=== PATIENT | male | born 1955 | race Caucasian/White ===

== ENCOUNTER 2019-05-25 19:18 | Observation (INO) ==
[2019-05-25 20:08] LABS: Basophils % 0.2 %; Eosinophils # 0.2 K/mcL (0.0-0.6); Eosinophils % 0.9 %; Hemoglobin 12.1 g/dL (12.9-16.9); Immature Granulocytes % 0.5 % (0-4); Lymphocytes # 1.8 K/mcL (0.6-4.6); Lymphocytes % 9.6 %; Mean Corpuscular HGB Conc 32.7 g/dL (31.6-35.5); Mean Corpuscular Hemoglobin 28.1 pg (28.0-33.3); Mean Corpuscular Volume 85.8 fL (83.0-100.0); Mean Platelet Volume 10.1 fL (9.4-12.4); Monocytes # 1.1 K/mcL (0.0-1.3); Monocytes % 5.7 %; Neutrophils # 15.5 K/mcL (1.6-8.9); Platelet Count 313 K/mcL (140-400); Red Blood Count 4.31 M/mcL (4.19-5.50); Segmented Neutrophils % 83.1 %; White Blood Count 18.7 K/mcL (4.3-11.1)
[2019-05-25 20:14] LABS: INR 1.3; Prothrombin Time 15.2 Seconds (9.4-12.1)
[2019-05-25 20:17] LABS: Activated Partial Thrombo Time 31.9 Seconds (26.0-36.0)
[2019-05-25 20:30] LABS: Alanine Aminotransferase 14 Units/L (7-52); Albumin 4.2 g/dL (3.5-5.7); Albumin/Globulin Ratio 1.4 (1.1-2.2); Alkaline Phosphatase 66 Units/L (34-104); Aspartate Amino Transferase 17 Units/L (13-39); BUN/Creatinine Ratio 19 (6-26); Bilirubin,Total 0.2 mg/dL (0.3-1.0); Blood Urea Nitrogen 25 mg/dL (8-23); Calcium 9.2 mg/dL (8.6-10.3); Carbon Dioxide 22 mEq/L (23-29); Chloride 103 mEq/L (98-107); Globulin 2.9 g/dL (2.4-3.5); Glucose 118 mg/dL (70-105); Osmolality,Calculated 287 (280-300); Sodium 136 mEq/L (136-145); Total Protein 7.1 g/dL (6.4-8.9); Troponin I < 0.03 ng/mL (< 0.04); eGFR For African Americans > 60 (> 60); eGFR For Non-African Americans 54 (> 60)
[2019-05-25 21:28] LABS: Bilirubin,Urine Negative (Negative); Blood,Urine Negative (Negative); Clarity,Urine Clear (Clear); Color,Urine Yellow (Yellow); Glucose,Urine (UA) 100 mg/dL (Normal); Ketones,Urine Negative (Negative); Leukocyte Esterase,Urine Negative (Negative); Nitrite,Urine Negative (Negative); Protein,Urine Trace mg/dL (Neg-Trace); Specific Gravity,Urine > 1.030 (1.010-1.025); Urobilinogen,Urine Normal (Normal)
[2019-05-25] MEDS ORDERED: Naloxone 0.4 MG/ML INJ IVP PRN (23:03)
[2019-05-25] MEDS ORDERED: *HR* Promethazine 25 MG/ML VIAL IVP PRN (23:03)
[2019-05-25] MEDS ORDERED: Acetaminophen 325 MG TABLET PO PRN (23:03)
[2019-05-25] MEDS ORDERED: MOM Conc 10 ML UD.LIQ PO PRN (23:03)
[2019-05-25] MEDS ORDERED: 0.9 % Sodium Chloride 1,000 ML IVC SCH (23:15)
[2019-05-26 01:21] LABS: Basophils # 0.1 K/mcL (0.0-0.2); Basophils % 0.3 %; Eosinophils % 0.1 %; Hematocrit 34.1 % (37.5-50.1); Hemoglobin 10.7 g/dL (12.9-16.9); Immature Granulocytes % 0.3 % (0-4); Lymphocytes # 1.2 K/mcL (0.6-4.6); Lymphocytes % 6.6 %; Mean Corpuscular HGB Conc 31.4 g/dL (31.6-35.5); Mean Corpuscular Hemoglobin 27.9 pg (28.0-33.3); Mean Platelet Volume 10.5 fL (9.4-12.4); Monocytes # 1.3 K/mcL (0.0-1.3); Monocytes % 7.1 %; Neutrophils # 15.5 K/mcL (1.6-8.9); Platelet Count 296 K/mcL (140-400); Red Blood Count 3.83 M/mcL (4.19-5.50); Segmented Neutrophils % 85.6 %; White Blood Count 18.1 K/mcL (4.3-11.1)
[2019-05-26 01:40] LABS: BUN/Creatinine Ratio 19 (6-26); Blood Urea Nitrogen 23 mg/dL (8-23); Calcium 8.7 mg/dL (8.6-10.3); Carbon Dioxide 24 mEq/L (23-29); Chloride 102 mEq/L (98-107); Glucose 123 mg/dL (70-105); Magnesium 1.8 mg/dL (1.6-2.6); Osmolality,Calculated 283 (280-300); Potassium 4.3 mEq/L (3.5-5.1); Sodium 134 mEq/L (136-145); eGFR For African Americans > 60 (> 60); eGFR For Non-African Americans > 60 (> 60)
[2019-05-26 01:52] LABS: Thyroid Stimulating Hormone 1.636 mcIU/mL (0.340-5.600)
[2019-05-26] MEDS ORDERED: Perflutren Lipid Microsphere 1.3 ML in 0.9 % Sodium Chloride 8.7 ML IVP ONE (07:57)
[2019-05-26] MEDS ORDERED: Aspirin Enteric Coated 81 MG Tablet PO SCH (09:00)
[2019-05-26] MEDS ORDERED: *HR* Rivaroxaban 10 MG TABLET PO SCH (09:00)
[2019-05-26] MEDS ORDERED: Diltiazem CD (24hr) 120 MG CAPSULE PO SCH ×2 (09:00)
[2019-05-26 11:35] VITALS: BP 130/72
[2019-05-26 12:54] LABS: Basophils % 0.3 %; Eosinophils # 0.1 K/mcL (0.0-0.6); Eosinophils % 1.1 %; Hematocrit 31.5 % (37.5-50.1); Hemoglobin 10.3 g/dL (12.9-16.9); Immature Granulocytes % 0.5 % (0-4); Lymphocytes # 1.6 K/mcL (0.6-4.6); Lymphocytes % 14.8 %; Mean Corpuscular HGB Conc 32.7 g/dL (31.6-35.5); Mean Corpuscular Hemoglobin 27.7 pg (28.0-33.3); Mean Corpuscular Volume 84.7 fL (83.0-100.0); Monocytes # 1.1 K/mcL (0.0-1.3); Monocytes % 9.7 %; Neutrophils # 8.2 K/mcL (1.6-8.9); Platelet Count 297 K/mcL (140-400); Red Blood Count 3.72 M/mcL (4.19-5.50); Red Cell Distribution Width 14.1 % (11.5-14.5); Segmented Neutrophils % 73.6 %; White Blood Count 11.1 K/mcL (4.3-11.1)
== END 2019-05-26 15:37 | disposition home or self-care (01) ==
LOC: EMEROOARM 19:18 → 2NENU 19:18 → SUATTDRO 22:44 → 2NENU 23:19
PROVIDERS: ADMIT Family Medicine; ATTEND Internal Medicine

== ENCOUNTER 2019-12-04 06:08 | Inpatient (IN) ==
[2019-12-04] MEDS ORDERED: CeFAZolin Syr 2,000MG/20 ML 2,000 MG/20 ML SYRINGE IVPB ONE (06:13)
[2019-12-04] MEDS ORDERED: Chlorhexidine Rinse 15 ML MOUTHWASH MM STA (06:14)
[2019-12-04] MEDS ORDERED: NiCARdipine 2.5 MG/10 ML Syringe IVPB ONE (06:34)
[2019-12-04] MEDS ORDERED: *HR* Midazolam HCl 5 MG/5 ML VIAL IVP ONE (06:35)
[2019-12-04] MEDS ORDERED: *HR* FentaNYL (PF) 1,000 MCG/20 ML VIAL ONE (06:36)
[2019-12-04] MEDS ORDERED: *HR* PHENYLEPHRINE 1,000 MCG/10 ML SYRINGE IVP ONE (06:37)
[2019-12-04] MEDS ORDERED: *HR* Rocuronium Bromide 50 MG/5 ML VIAL ONE ×2 (06:37→10:26)
[2019-12-04] MEDS ORDERED: Famotidine 20 MG/2 ML VIAL ONE (06:38)
[2019-12-04] MEDS ORDERED: *HR* Etomidate 20 MG/10 ML AMPUL IVP ONE (06:38)
[2019-12-04] MEDS: Ringers Solution, Lactated 1,000 ML IVC SCH (07:42)
[2019-12-04] MEDS ORDERED: Insulin Human Regular 100 UNIT in 0.9 % Sodium Chloride 100 ML IV PRN (07:45)
[2019-12-04] MEDS ORDERED: Dextrose 50 % in Water (Vial) 30 ML, Sodium Bicarbonate 20 MEQ, Lidocaine 1% 5 ML, Insu... TH ONE ×3 (07:45)
[2019-12-04] MEDS ORDERED: Dextrose 50 % in Water (Vial) 30 ML, Sodium Bicarbonate 20 MEQ, Potassium Chloride 15 M... TH ONE (07:45)
[2019-12-04] MEDS ORDERED: Heparin 15,000 UNIT in 0.9 % Sodium Chloride 500 ML IV ONE (07:45)
[2019-12-04] MEDS ORDERED: Norepinephrine 4 MG in 0.9 % Sodium Chloride 250 ML IVC PRN (07:45)
[2019-12-04] MEDS ORDERED: Tranexamic Acid 1,000 MG/10 ML VIAL ONE ×2 (09:29→09:30)
[2019-12-04] MEDS ORDERED: Albumin Human 5% 37.5 GM/750 ML IV.SOLN ONE (09:52)
[2019-12-04] MEDS ORDERED: Naloxone 0.4 MG/ML INJ IVP PRN (11:50)
[2019-12-04] MEDS ORDERED: Acetaminophen 325 MG TABLET PO PRN (11:50)
[2019-12-04] MEDS ORDERED: Acetaminophen 650 MG RECTAL SUPP RC PRN (11:50)
[2019-12-04] MEDS ORDERED: Potassium Chloride 40 MEQ/200 ML BAG IVPB PRN (11:50)
[2019-12-04] MEDS ORDERED: Calcium Gluconate 1gm/50mL 1 GM/50 ML BAG IVPB PRN (11:50)
[2019-12-04] MEDS ORDERED: Insulin Regular, Human 100 UNIT/ML IV PRN (11:50)
[2019-12-04] MEDS ORDERED: *HR* FentaNYL (PF) 100 MCG/2 ML VIAL IVP PRN (11:50)
[2019-12-04] MEDS ORDERED: Ondansetron 4 MG/2 ML VIAL IVP PRN (11:50)
[2019-12-04] MEDS ORDERED: *HR* Dextrose 50 % in Water (Vial) 50 ML VIAL IVP PRN (11:50)
[2019-12-04] MEDS ORDERED: 0.9 % Sodium Chloride 1,000 ML IVC SCH (12:00)
[2019-12-04] MEDS: Norepinephrine 4 MG/254 ML IV.SOLN IVC SCH (12:40)
[2019-12-04 12:49] LABS: ABG Base Excess -1 mEq/L (-2 to 3); ABG HCO3 24 mEq/L (21-27); ABG Oxygen Saturation 100 % (95-98); ABG PCO2 41 mmHg (35-45); ABG PH 7.38 pH Units (7.32-7.45); ABG PO2 176 mmHg (85-104); ABG TCO2 25 mEq/L (20-26); Blood Gas Modality AF; Blood Gas VT 500 cc
[2019-12-04 13:03] LABS: Basophils % 0.2 %; Eosinophils # 0.1 K/mcL (0.0-0.6); Eosinophils % 0.8 %; Hematocrit 25.2 % (37.5-50.1); Immature Granulocytes % 0.7 % (0-4); Lymphocytes % 11.4 %; Mean Corpuscular HGB Conc 29.8 g/dL (31.6-35.5); Mean Corpuscular Hemoglobin 23.7 pg (28.0-33.3); Mean Corpuscular Volume 79.5 fL (83.0-100.0); Mean Platelet Volume 10.3 fL (9.4-12.4); Monocytes # 1.7 K/mcL (0.0-1.3); Monocytes % 9.4 %; Neutrophils # 13.9 K/mcL (1.6-8.9); Platelet Count 154 K/mcL (140-400); Red Blood Count 3.17 M/mcL (4.19-5.50); Red Cell Distribution Width 16.7 % (11.5-14.5); Segmented Neutrophils % 77.5 %; White Blood Count 17.9 K/mcL (4.3-11.1)
[2019-12-04 13:04] LABS: Hemoglobin 7.5 g/dL (12.9-16.9)
[2019-12-04] MEDS: Albumin Human 5% 12.5 GM/250 ML IV.SOLN IVPB PRN ×2 (13:10→13:58)
[2019-12-04 13:11] LABS: INR 1.4; Prothrombin Time 15.5 Seconds (9.4-12.1)
[2019-12-04 13:14] LABS: Activated Partial Thrombo Time 29.4 Seconds (26.0-36.0)
[2019-12-04 13:19] LABS: BUN/Creatinine Ratio 13 (6-26); Blood Urea Nitrogen 14 mg/dL (8-23); Calcium 8.6 mg/dL (8.6-10.3); Carbon Dioxide 25 mEq/L (23-29); Chloride 109 mEq/L (98-107); Glucose 89 mg/dL (70-105); Magnesium 2.5 mg/dL (1.6-2.6); Osmolality,Calculated 288 (280-300); Sodium 139 mEq/L (136-145); eGFR For African Americans > 60 (> 60); eGFR For Non-African Americans > 60 (> 60)
[2019-12-04] MEDS ORDERED: Lidocaine 2% Syringe 100 MG/5 ML IV ONE (13:33)
[2019-12-04] MEDS ORDERED: Mannitol 25% vial 12.5 GM/50 ML VIAL IVPB ONE (13:33)
[2019-12-04] MEDS ORDERED: *HR* Magnesium Sulfate 2 GM/50 ML PIGGYBACK IVPB ONE (13:33)
[2019-12-04] MEDS ORDERED: Tranexamic Acid 1,000 MG/10 ML VIAL IR ONE (13:33)
[2019-12-04] MEDS ORDERED: *HR* Heparin 10,000 UNIT/10 ML VIAL IR ONE (13:33)
[2019-12-04] MEDS ORDERED: Heparin 1,000 UNITS/500 mL IV.SOLN IR ONE (13:33)
[2019-12-04] MEDS ORDERED: Albumin Human 25% 25 GM/100 ML IV.SOLN IVPB ONE (13:33)
[2019-12-04] MEDS ORDERED: D5% in Water 250 ML IV BAG IV ONE (13:33)
[2019-12-04] MEDS ORDERED: *HR* Phenylephrine 10 MG/ML VIAL IVC ONE (13:33)
[2019-12-04] MEDS: niCARdipine 20 MG/200 ML MLS IVC SCH ×4 (14:21→23:11)
[2019-12-04] MEDS: Metoclopramide 10 MG/2 ML VIAL IVP SCH ×3 (14:24→23:11)
[2019-12-04] MEDS: Pantoprazole 40 MG VIAL IVP SCH (15:00)
[2019-12-04 15:57] LABS: ABG Base Excess -1 mEq/L (-2 to 3); ABG HCO3 25 mEq/L (21-27); ABG Oxygen Saturation 96 % (95-98); ABG PCO2 45 mmHg (35-45); ABG PH 7.36 pH Units (7.32-7.45); ABG PO2 82 mmHg (85-104); ABG TCO2 26 mEq/L (20-26); Blood Gas Modality AF; Blood Gas VT 500 cc
[2019-12-04] MEDS: CeFAZolin 2 GM/120 ML BAG IVPB SCH ×2 (15:58→23:19)
[2019-12-04 16:30] LABS: Basophils % 0.2 %; Eosinophils % 0.2 %; Hematocrit 27.3 % (37.5-50.1); Immature Granulocytes % 0.6 % (0-4); Lymphocytes % 6.3 %; Mean Corpuscular HGB Conc 29.3 g/dL (31.6-35.5); Mean Corpuscular Hemoglobin 23.3 pg (28.0-33.3); Mean Corpuscular Volume 79.6 fL (83.0-100.0); Mean Platelet Volume 10.4 fL (9.4-12.4); Monocytes # 1.5 K/mcL (0.0-1.3); Monocytes % 9.5 %; Neutrophils # 12.8 K/mcL (1.6-8.9); Platelet Count 176 K/mcL (140-400); Red Blood Count 3.43 M/mcL (4.19-5.50); Red Cell Distribution Width 16.8 % (11.5-14.5); Segmented Neutrophils % 83.2 %; White Blood Count 15.3 K/mcL (4.3-11.1)
[2019-12-04 16:38] LABS: INR 1.2; Prothrombin Time 13.8 Seconds (9.4-12.1)
[2019-12-04 16:41] LABS: Activated Partial Thrombo Time 29.2 Seconds (26.0-36.0)
[2019-12-04 16:46] LABS: Alanine Aminotransferase 10 Units/L (7-52); Albumin 3.8 g/dL (3.5-5.7); Albumin/Globulin Ratio 2.2 (1.1-2.2); Alkaline Phosphatase 44 Units/L (34-104); Aspartate Amino Transferase 23 Units/L (13-39); BUN/Creatinine Ratio 12 (6-26); Bilirubin,Total 0.5 mg/dL (0.3-1.0); Blood Urea Nitrogen 14 mg/dL (8-23); Calcium 8.2 mg/dL (8.6-10.3); Carbon Dioxide 27 mEq/L (23-29); Chloride 106 mEq/L (98-107); Globulin 1.7 g/dL (2.4-3.5); Glucose 157 mg/dL (70-105); Osmolality,Calculated 290 (280-300); Potassium 4.2 mEq/L (3.5-5.1); Sodium 138 mEq/L (136-145); Total Protein 5.5 g/dL (6.4-8.9); eGFR For African Americans > 60 (> 60); eGFR For Non-African Americans > 60 (> 60)
[2019-12-04] MEDS: Insulin Human Regular 100 UNIT in 0.9 % Sodium Chloride 100 ML IVC SCH (17:00)
[2019-12-04] MEDS: *HR* OxyCODONE/APAP 5/325 TABLET PO PRN ×2 (17:22→23:11)
[2019-12-04] MEDS: Chlorhexidine Rinse 15 ML MOUTHWASH MM SCH (20:03)
[2019-12-04 20:30] LABS: ABG Base Excess 1 mEq/L (-2 to 3); ABG HCO3 27 mEq/L (21-27); ABG Oxygen Saturation 95 % (95-98); ABG PCO2 47 mmHg (35-45); ABG PH 7.36 pH Units (7.32-7.45); ABG PO2 79 mmHg (85-104); ABG TCO2 28 mEq/L (20-26); Blood Gas VT 500 cc
[2019-12-04 23:28] LABS: ABG Base Excess 0 mEq/L (-2 to 3); ABG HCO3 26 mEq/L (21-27); ABG Oxygen Saturation 93 % (95-98); ABG PCO2 48 mmHg (35-45); ABG PH 7.34 pH Units (7.32-7.45); ABG PO2 72 mmHg (85-104); ABG TCO2 28 mEq/L (20-26); Blood Gas Modality CPAP/PS; Blood Gas Pressure Support 5 cm H2O
[2019-12-05 01:09] LABS: ABG Base Excess 0 mEq/L (-2 to 3); ABG HCO3 26 mEq/L (21-27); ABG Oxygen Saturation 94 % (95-98); ABG PCO2 48 mmHg (35-45); ABG PH 7.34 pH Units (7.32-7.45); ABG PO2 75 mmHg (85-104); ABG TCO2 27 mEq/L (20-26)
[2019-12-05] MEDS: niCARdipine 20 MG/200 ML MLS IVC SCH (02:11)
[2019-12-05 05:23] LABS: Basophils % 0.2 %; Eosinophils % 0.1 %; Hematocrit 25.2 % (37.5-50.1); Hemoglobin 7.3 g/dL (12.9-16.9); Immature Granulocytes % 0.3 % (0-4); Lymphocytes # 0.9 K/mcL (0.6-4.6); Lymphocytes % 7.3 %; Mean Corpuscular Hemoglobin 23.4 pg (28.0-33.3); Mean Corpuscular Volume 80.8 fL (83.0-100.0); Mean Platelet Volume 10.4 fL (9.4-12.4); Monocytes # 1.6 K/mcL (0.0-1.3); Monocytes % 12.5 %; Neutrophils # 10.2 K/mcL (1.6-8.9); Platelet Count 164 K/mcL (140-400); Red Blood Count 3.12 M/mcL (4.19-5.50); Red Cell Distribution Width 17.1 % (11.5-14.5); Segmented Neutrophils % 79.6 %; White Blood Count 12.8 K/mcL (4.3-11.1)
[2019-12-05 05:28] LABS: Prothrombin Time 11.6 Seconds (9.4-12.1)
[2019-12-05] MEDS: Metoclopramide 10 MG/2 ML VIAL IVP SCH ×3 (05:36→17:15)
[2019-12-05] MEDS: Ringers Solution, Lactated 1,000 ML IVC SCH (05:36)
[2019-12-05] MEDS: *HR* OxyCODONE/APAP 5/325 TABLET PO PRN ×3 (05:36→19:40)
[2019-12-05 05:42] LABS: BUN/Creatinine Ratio 15 (6-26); Blood Urea Nitrogen 17 mg/dL (8-23); Carbon Dioxide 26 mEq/L (23-29); Chloride 109 mEq/L (98-107); Glucose 108 mg/dL (70-105); Osmolality,Calculated 292 (280-300); Potassium 4.2 mEq/L (3.5-5.1); Sodium 140 mEq/L (136-145); eGFR For African Americans > 60 (> 60); eGFR For Non-African Americans > 60 (> 60)
[2019-12-05 05:47] LABS: Activated Partial Thrombo Time 20.5 Seconds (26.0-36.0)
[2019-12-05] MEDS ORDERED: Dextrose Gel 15 GM/37.5 ML TUBE PO PRN ×2 (06:55)
[2019-12-05] MEDS ORDERED: D5% in Water 1,000 ML IVC PRN (06:55)
[2019-12-05] MEDS ORDERED: *HR* Dextrose 50 % in Water (Vial) 50 ML VIAL IVP PRN (06:55)
[2019-12-05] MEDS ORDERED: *HR* FentaNYL (PF) 100 MCG/2 ML VIAL IVP PRN (07:00)
[2019-12-05] MEDS: *HR* Heparin 5,000 UNIT/ML VIAL SQ SCH ×2 (08:30→17:15)
[2019-12-05] MEDS: Furosemide 20 MG/2 ML VIAL IVP SCH ×2 (08:30→19:40)
[2019-12-05] MEDS: Insulin LISPRO 300 UNITS/3 ML VIAL SQ SCH ×3 (08:30→17:16)
[2019-12-05] MEDS: Chlorhexidine Rinse 15 ML MOUTHWASH MM SCH ×2 (08:30→19:41)
[2019-12-05] MEDS: Pantoprazole 40 MG VIAL IVP SCH (08:31)
[2019-12-05] MEDS: Norepinephrine 4 MG/254 ML IV.SOLN IVC SCH (14:25)
[2019-12-05] MEDS ORDERED: Insulin LISPRO 300 UNITS/3 ML VIAL SQ SCH (21:00)
[2019-12-06] MEDS: Metoclopramide 10 MG/2 ML VIAL IVP SCH ×2 (00:39→06:17)
[2019-12-06] MEDS: *HR* OxyCODONE/APAP 5/325 TABLET PO PRN (00:39)
[2019-12-06] MEDS: *HR* Heparin 5,000 UNIT/ML VIAL SQ SCH ×2 (06:17→17:44)
[2019-12-06 06:53] LABS: Basophils % 0.2 %; Eosinophils # 0.1 K/mcL (0.0-0.6); Eosinophils % 0.4 %; Hematocrit 23.1 % (37.5-50.1); Hemoglobin 6.9 g/dL (12.9-16.9); Immature Granulocytes % 0.5 % (0-4); Lymphocytes # 1.3 K/mcL (0.6-4.6); Mean Corpuscular HGB Conc 29.9 g/dL (31.6-35.5); Mean Corpuscular Hemoglobin 23.6 pg (28.0-33.3); Mean Corpuscular Volume 79.1 fL (83.0-100.0); Mean Platelet Volume 10.4 fL (9.4-12.4); Monocytes # 1.9 K/mcL (0.0-1.3); Monocytes % 13.8 %; Neutrophils # 10.6 K/mcL (1.6-8.9); Platelet Count 156 K/mcL (140-400); Red Blood Count 2.92 M/mcL (4.19-5.50); Red Cell Distribution Width 16.9 % (11.5-14.5); Segmented Neutrophils % 76.1 %; White Blood Count 13.9 K/mcL (4.3-11.1)
[2019-12-06] MEDS: Insulin LISPRO 300 UNITS/3 ML VIAL SQ SCH ×4 (07:52→20:36)
[2019-12-06] MEDS: Chlorhexidine Rinse 15 ML MOUTHWASH MM SCH ×3 (07:52→20:36)
[2019-12-06] MEDS: Pantoprazole 40 MG VIAL IVP SCH (08:06)
[2019-12-06] MEDS: Furosemide 20 MG/2 ML VIAL IVP SCH (08:06)
[2019-12-06] MEDS ORDERED: Naloxone 0.4 MG/ML INJ IVP PRN (08:48)
[2019-12-06] MEDS ORDERED: D5% in Water 1,000 ML IVC PRN (08:48)
[2019-12-06] MEDS ORDERED: Insulin Regular, Human 100 UNIT/ML IV PRN (08:48)
[2019-12-06] MEDS ORDERED: *HR* OxyCODONE/APAP 5/325 TABLET PO PRN (08:48)
[2019-12-06] MEDS ORDERED: Acetaminophen 325 MG TABLET PO PRN (08:48)
[2019-12-06] MEDS ORDERED: Dextrose Gel 15 GM/37.5 ML TUBE PO PRN ×2 (08:48)
[2019-12-06] MEDS ORDERED: Nitroglycerin 0.4 MG TAB.SUBL SL PRN (08:48)
[2019-12-06] MEDS ORDERED: Ondansetron 4 MG/2 ML VIAL IVP PRN (08:48)
[2019-12-06] MEDS ORDERED: *HR* Dextrose 50 % in Water (Vial) 50 ML VIAL IVP PRN (08:48)
[2019-12-06] MEDS ORDERED: Furosemide 20 MG/2 ML VIAL IVP SCH (09:00)
[2019-12-06] MEDS ORDERED: Aspirin Enteric Coated 81 MG Tablet PO SCH ×2 (09:00)
[2019-12-06] MEDS: Aspirin Enteric Coated 81 MG Tablet PO SCH (10:22)
[2019-12-06] MEDS ORDERED: 0.9 % Sodium Chloride 250 ML ONE (10:26)
[2019-12-06] MEDS: PARoxetine 20 MG TABLET PO SCH (10:27)
[2019-12-06] MEDS: DilTIAZem CD (24hr) 120 MG CAP.ER.24H PO SCH (11:17)
[2019-12-06] MEDS: Insulin Human Regular 100 UNIT in 0.9 % Sodium Chloride 100 ML IVC SCH (19:15)
[2019-12-07] MEDS: *HR* Heparin 5,000 UNIT/ML VIAL SQ SCH ×2 (06:01→17:13)
[2019-12-07] MEDS: Insulin LISPRO 300 UNITS/3 ML VIAL SQ SCH ×4 (07:52→20:12)
[2019-12-07] MEDS: Chlorhexidine Rinse 15 ML MOUTHWASH MM SCH ×2 (07:53→20:11)
[2019-12-07] MEDS: Aspirin Enteric Coated 81 MG Tablet PO SCH (07:54)
[2019-12-07] MEDS: PARoxetine 20 MG TABLET PO SCH (07:54)
[2019-12-07] MEDS: lisinopriL 10 MG TABLET PO SCH (09:17)
[2019-12-07] MEDS: DilTIAZem CD (24hr) 120 MG CAP.ER.24H PO SCH (09:17)
[2019-12-08 03:33] LABS: Basophils % 0.2 %; Eosinophils # 0.2 K/mcL (0.0-0.6); Hematocrit 21.9 % (37.5-50.1); Hemoglobin 6.8 g/dL (12.9-16.9); Immature Granulocytes % 0.5 % (0-4); Lymphocytes # 1.3 K/mcL (0.6-4.6); Lymphocytes % 16.4 %; Mean Corpuscular HGB Conc 31.1 g/dL (31.6-35.5); Mean Corpuscular Hemoglobin 24.8 pg (28.0-33.3); Mean Corpuscular Volume 79.9 fL (83.0-100.0); Mean Platelet Volume 10.5 fL (9.4-12.4); Monocytes % 12.8 %; Neutrophils # 5.5 K/mcL (1.6-8.9); Nucleated Red Blood Cells 0.2 /100 WBC (0); Platelet Count 175 K/mcL (140-400); Red Blood Count 2.74 M/mcL (4.19-5.50); Red Cell Distribution Width 16.6 % (11.5-14.5); Segmented Neutrophils % 68.1 %; White Blood Count 8.1 K/mcL (4.3-11.1)
[2019-12-08 03:50] LABS: BUN/Creatinine Ratio 21 (6-26); Blood Urea Nitrogen 18 mg/dL (8-23); Carbon Dioxide 27 mEq/L (23-29); Chloride 102 mEq/L (98-107); Glucose 98 mg/dL (70-105); Osmolality,Calculated 280 (280-300); Potassium 3.4 mEq/L (3.5-5.1); Sodium 134 mEq/L (136-145); eGFR For African Americans > 60 (> 60); eGFR For Non-African Americans > 60 (> 60)
[2019-12-08] MEDS: *HR* Heparin 5,000 UNIT/ML VIAL SQ SCH ×2 (05:28→18:45)
[2019-12-08] MEDS: Insulin LISPRO 300 UNITS/3 ML VIAL SQ SCH ×4 (07:26→19:26)
[2019-12-08] MEDS: DilTIAZem CD (24hr) 120 MG CAP.ER.24H PO SCH (07:55)
[2019-12-08] MEDS: Aspirin Enteric Coated 81 MG Tablet PO SCH (07:55)
[2019-12-08] MEDS: PARoxetine 20 MG TABLET PO SCH (07:55)
[2019-12-08] MEDS: Chlorhexidine Rinse 15 ML MOUTHWASH MM SCH (07:55)
[2019-12-08] MEDS: lisinopriL 10 MG TABLET PO SCH (07:55)
[2019-12-08] MEDS ORDERED: Potassium Chloride 40 MEQ, Lidocaine 1% 2 ML in 0.9 % Sodium Chloride 500 ML IVPB ONE (07:58)
[2019-12-08] MEDS ORDERED: Thiamine (B-1) 100 MG in 0.9 % Sodium Chloride 50 ML IVPB ONE (07:58)
[2019-12-08] MEDS ORDERED: Folic Acid 1 MG in 0.9 % Sodium Chloride 50 ML IVPB ONE (07:58)
[2019-12-08] MEDS ORDERED: Iron Sucrose Complex 400 MG in 0.9 % Sodium Chloride 250 ML IVPB ONE (09:00)
[2019-12-08] MEDS ORDERED: Potassium Chloride 20 MEQ, Lidocaine 1% 2 ML in 0.9 % Sodium Chloride 250 ML IVPB ONE (12:00)
[2019-12-09 03:50] LABS: BUN/Creatinine Ratio 22 (6-26); Blood Urea Nitrogen 19 mg/dL (8-23); Carbon Dioxide 24 mEq/L (23-29); Chloride 104 mEq/L (98-107); Glucose 96 mg/dL (70-105); Magnesium 2.3 mg/dL (1.6-2.6); Osmolality,Calculated 282 (280-300); Potassium 3.9 mEq/L (3.5-5.1); Sodium 135 mEq/L (136-145); eGFR For African Americans > 60 (> 60); eGFR For Non-African Americans > 60 (> 60)
[2019-12-09] MEDS: *HR* Heparin 5,000 UNIT/ML VIAL SQ SCH (05:13)
[2019-12-09] MEDS: Aspirin Enteric Coated 81 MG Tablet PO SCH (08:20)
[2019-12-09] MEDS: lisinopriL 10 MG TABLET PO SCH (08:21)
[2019-12-09] MEDS: DilTIAZem CD (24hr) 120 MG CAP.ER.24H PO SCH (08:21)
[2019-12-09] MEDS: PARoxetine 20 MG TABLET PO SCH (08:21)
[2019-12-09 08:24] VITALS: BP 123/73
[2019-12-09] MEDS: Insulin LISPRO 300 UNITS/3 ML VIAL SQ SCH (08:24)
[2019-12-10 07:53] LABS: ABG Base Excess -1 mEq/L (-2 to 3); ABG Chloride 100 mEq/L (98-107); ABG Glucose 177 mg/dL (60-95); ABG HCO3 23 mEq/L (21-27); ABG Ionized Calcium 0.97 mmol/L (1.15-1.35); ABG PCO2 37 mmHg (35-45); ABG PH 7.41 pH Units (7.32-7.45); ABG PO2 > 630 mmHg (85-104); ABG TCO2 25 mEq/L (20-26)
[2019-12-10 07:53] LABS: ABG Base Excess 0 mEq/L (-2 to 3); ABG Chloride 105 mEq/L (98-107); ABG Glucose 106 mg/dL (60-95); ABG HCO3 27 mEq/L (21-27); ABG Ionized Calcium 1.23 mmol/L (1.15-1.35); ABG Oxygen Saturation 100 % (95-98); ABG PCO2 58 mmHg (35-45); ABG PH 7.28 pH Units (7.32-7.45); ABG PO2 249 mmHg (85-104); ABG TCO2 29 mEq/L (20-26)
[2019-12-10 07:54] LABS: ABG Base Excess -3 mEq/L (-2 to 3); ABG Chloride 109 mEq/L (98-107); ABG Glucose 159 mg/dL (60-95); ABG HCO3 23 mEq/L (21-27); ABG Ionized Calcium 1.01 mmol/L (1.15-1.35); ABG Oxygen Saturation 100 % (95-98); ABG PCO2 40 mmHg (35-45); ABG PH 7.36 pH Units (7.32-7.45); ABG PO2 215 mmHg (85-104); ABG TCO2 24 mEq/L (20-26)
[2019-12-10 07:54] LABS: ABG Base Excess 0 mEq/L (-2 to 3); ABG Chloride 104 mEq/L (98-107); ABG Glucose 123 mg/dL (60-95); ABG HCO3 24 mEq/L (21-27); ABG Ionized Calcium 1.04 mmol/L (1.15-1.35); ABG Oxygen Saturation 100 % (95-98); ABG PCO2 37 mmHg (35-45); ABG PH 7.43 pH Units (7.32-7.45); ABG PO2 593 mmHg (85-104); ABG TCO2 25 mEq/L (20-26)
[2019-12-10 07:54] LABS: ABG Base Excess 0 mEq/L (-2 to 3); ABG Chloride 102 mEq/L (98-107); ABG Glucose 142 mg/dL (60-95); ABG HCO3 24 mEq/L (21-27); ABG Ionized Calcium 1.04 mmol/L (1.15-1.35); ABG Oxygen Saturation 100 % (95-98); ABG PCO2 37 mmHg (35-45); ABG PH 7.42 pH Units (7.32-7.45); ABG PO2 595 mmHg (85-104); ABG TCO2 25 mEq/L (20-26)
[2019-12-10 07:54] LABS: ABG Base Excess -4 mEq/L (-2 to 3); ABG Chloride 105 mEq/L (98-107); ABG Glucose 108 mg/dL (60-95); ABG HCO3 22 mEq/L (21-27); ABG Ionized Calcium 1.35 mmol/L (1.15-1.35); ABG Oxygen Saturation 98 % (95-98); ABG PCO2 41 mmHg (35-45); ABG PH 7.34 pH Units (7.32-7.45); ABG PO2 108 mmHg (85-104); ABG TCO2 23 mEq/L (20-26)
[2019-12-10 07:54] LABS: ABG Base Excess 1 mEq/L (-2 to 3); ABG Chloride 102 mEq/L (98-107); ABG Glucose 186 mg/dL (60-95); ABG HCO3 25 mEq/L (21-27); ABG Ionized Calcium 0.97 mmol/L (1.15-1.35); ABG PCO2 37 mmHg (35-45); ABG PH 7.43 pH Units (7.32-7.45); ABG PO2 > 630 mmHg (85-104); ABG TCO2 26 mEq/L (20-26)
== END 2019-12-09 11:25 | disposition home or self-care (01) | DRG 229 ==
LOC: SAMDAY 06:08 → ICNU 09:09 → 2NNU 12-09 08:12
PROVIDERS: ADMIT Thoracic Surgery (Cardiothoracic Vascular Surgery); ATTEND Thoracic Surgery (Cardiothoracic Vascular Surgery)

== ENCOUNTER 2021-07-23 06:04 | Inpatient (IN) ==
[2021-07-23] MEDS ORDERED: Vancomycin 1,500 MG/265 ML IV.SOLN IVPB ONE (06:23)
[2021-07-23] MEDS ORDERED: CeFAZolin Syr 2,000MG/20 ML 2,000 MG/20 ML SYRINGE IVPB ONE (06:23)
[2021-07-23] MEDS ORDERED: Ringers Solution, Lactated 1,000 ML IVC SCH (06:30)
[2021-07-23] MEDS ORDERED: *HR* Phenylephrine 10 MG/ML VIAL ONE (07:15)
[2021-07-23] MEDS ORDERED: Acetaminophen IV 1,000 MG/100 ML BAG IVPB ONE (07:17)
[2021-07-23] MEDS ORDERED: Heparin 1,000 UNITS/500 mL 500 ML ONE (07:17)
[2021-07-23] MEDS ORDERED: EPHEDrine 50 MG/ML VIAL ONE (07:18)
[2021-07-23] MEDS ORDERED: Ketamine HCL *QUVA* 50mg (1mL) SYRINGE ONE ×2 (07:19→08:55)
[2021-07-23] MEDS ORDERED: Bupivacaine-MPF 0.25% 10 ML VIAL ONE (07:20)
[2021-07-23] MEDS ORDERED: Heparin 1,000 UNITS/500 mL 1,500 ML ONE (07:20)
[2021-07-23] MEDS ORDERED: *HR* Succinylcholine 200 MG/10 ML VIAL IVP ONE (07:21)
[2021-07-23] MEDS ORDERED: *HR* Midazolam HCl 2 MG/2 ML VIAL ONE (07:21)
[2021-07-23] MEDS ORDERED: Ondansetron 4 MG/2 ML VIAL ONE (07:21)
[2021-07-23] MEDS ORDERED: *HR* FentaNYL (PF) 100 MCG/2 ML VIAL ONE (07:21)
[2021-07-23] MEDS ORDERED: Vancomycin 1,000 MG VIAL ONE (07:21)
[2021-07-23] MEDS ORDERED: *HR* Rocuronium Bromide 50 MG/5 ML VIAL ONE ×2 (07:21→09:31)
[2021-07-23] MEDS ORDERED: *HR* Propofol 200 MG/20 ML VIAL IVP ONE (07:21)
[2021-07-23] MEDS ORDERED: *HR* Vasopressin 20 UNIT/ML VIAL ONE (07:27)
[2021-07-23] MEDS ORDERED: Albumin Human 5% 25.0 GM/500 ML IV.SOLN ONE (07:27)
[2021-07-23] MEDS ORDERED: *HR* FentaNYL (PF) 100 MCG/2 ML VIAL IVP PRN (07:41)
[2021-07-23] MEDS ORDERED: Albuterol 2.5 MG/3 ML NEBULIZER IH PRN (07:41)
[2021-07-23] MEDS ORDERED: Ondansetron 4 MG/2 ML VIAL IVP PRN (07:41)
[2021-07-23] MEDS ORDERED: Vancomycin 1,000 MG, Sodium Chloride IRRigation 1,000 ML IR ONE (07:45)
[2021-07-23] MEDS ORDERED: *HR* Heparin 5,000 UNIT/ML VIAL ONE (07:53)
[2021-07-23] MEDS ORDERED: *HR* HYDROMORPHONE 2 MG/ML VIAL ONE (10:44)
[2021-07-23] MEDS ORDERED: Sugammadex Sodium 200 MG/2 ML VIAL IV ONE (10:57)
[2021-07-23] MEDS ORDERED: 0.9 % Sodium Chloride 1,000 ML IVC SCH ×2 (12:00→14:09)
[2021-07-23] MEDS ORDERED: Nitroglycerin 0.4 MG TAB.SUBL SL PRN (14:09)
[2021-07-23] MEDS ORDERED: *HR* Metoprolol 5 MG/5 ML VIAL IVP SCH (14:09)
[2021-07-23] MEDS ORDERED: Naloxone 0.4 MG/ML INJ IVP PRN (14:09)
[2021-07-23] MEDS ORDERED: *HR* HYDROcodone/Acet 5/325 mg TABLET PO PRN (14:09)
[2021-07-23] MEDS ORDERED: *HR* OxyCODONE Immed Rel 5 MG TABLET PO PRN (14:09)
[2021-07-23] MEDS ORDERED: *HR* Labetalol 20 MG/4 ML SYRINGE IVP PRN (14:09)
[2021-07-23] MEDS ORDERED: Acetaminophen 325 MG TABLET PO PRN (14:09)
[2021-07-23] MEDS: 0.9 % Sodium Chloride 1,000 ML IVC SCH (14:30)
[2021-07-23] MEDS: CeFAZolin 2 GM/120 ML BAG IVPB SCH (17:18)
[2021-07-23] MEDS: *HR* Metoprolol 5 MG/5 ML VIAL IVP SCH (20:20)
[2021-07-23 22:49] VITALS: O2SAT 93
[2021-07-24] MEDS: CeFAZolin 2 GM/120 ML BAG IVPB SCH (01:00)
[2021-07-24] MEDS: *HR* Metoprolol 5 MG/5 ML VIAL IVP SCH ×2 (03:10→10:56)
[2021-07-24] MEDS: 0.9 % Sodium Chloride 1,000 ML IVC SCH (03:10)
[2021-07-24 05:08] LABS: Basophils % 0.1 %; Hemoglobin 11.9 g/dL (12.9-16.9); Immature Granulocytes % 0.4 % (0-4); Lymphocytes # 0.8 K/mcL (0.6-4.6); Mean Corpuscular HGB Conc 32.2 g/dL (31.6-35.5); Mean Corpuscular Hemoglobin 30.2 pg (28.0-33.3); Mean Corpuscular Volume 93.9 fL (83.0-100.0); Mean Platelet Volume 10.3 fL (9.4-12.4); Monocytes % 8.3 %; Platelet Count 176 K/mcL (140-400); Red Blood Count 3.94 M/mcL (4.19-5.50); Red Cell Distribution Width 12.4 % (11.5-14.5); Segmented Neutrophils % 84.2 %; White Blood Count 11.9 K/mcL (4.3-11.1)
[2021-07-24 05:24] LABS: BUN/Creatinine Ratio 10 (6-26); Blood Urea Nitrogen 12 mg/dL (8-23); Calcium 8.1 mg/dL (8.6-10.3); Carbon Dioxide 26 mEq/L (23-29); Chloride 103 mEq/L (98-107); Glucose 126 mg/dL (70-105); Osmolality,Calculated 281 (280-300); Potassium 4.4 mEq/L (3.5-5.1); Sodium 135 mEq/L (136-145); eGFR For African Americans > 60 (> 60); eGFR For Non-African Americans 59 (> 60)
[2021-07-24] MEDS ORDERED: *HR* Heparin 5,000 UNIT/ML VIAL SQ SCH ×2 (06:00)
[2021-07-24 07:38] VITALS: BP 126/56; PULSE 64; TEMP 97.9
[2021-07-24] MEDS ORDERED: Aspirin Enteric Coated 81 MG Tablet PO SCH (09:00)
[2021-07-24] MEDS ORDERED: PARoxetine 20 MG TABLET PO SCH (09:00)
[2021-07-24] MEDS ORDERED: lisinopriL 5 MG TABLET PO SCH (09:00)
== END 2021-07-24 11:31 | disposition home or self-care (01) | DRG 269 ==
LOC: SAMDAY 06:04 → 2NNU 14:12
PROVIDERS: ADMIT Surgery; ATTEND Surgery

== ENCOUNTER 2021-08-18 06:37 | Inpatient (IN) ==
[2021-08-18] MEDS ORDERED: Heparin 1,000 UNITS/500 mL 500 ML ONE ×2 (06:59→07:14)
[2021-08-18] MEDS ORDERED: CeFAZolin Syr 2,000MG/20 ML 2,000 MG/20 ML SYRINGE IVPB ONE (07:06)
[2021-08-18] MEDS ORDERED: *HR* Propofol 200 MG/20 ML VIAL IVP ONE (07:14)
[2021-08-18] MEDS ORDERED: *HR* Midazolam HCl 2 MG/2 ML VIAL ONE (07:14)
[2021-08-18] MEDS ORDERED: *HR* FentaNYL (PF) 100 MCG/2 ML VIAL ONE ×2 (07:14→09:01)
[2021-08-18] MEDS ORDERED: Ringers Solution, Lactated 1,000 ML IVC SCH (07:15)
[2021-08-18] MEDS ORDERED: Ketamine HCL *QUVA* 50mg (1mL) SYRINGE ONE (07:19)
[2021-08-18] MEDS ORDERED: Bupivacaine/EPI 1:200k 0.25% 50 ML VIAL ONE (07:35)
[2021-08-18] MEDS ORDERED: Mannitol 20% 0 GM/0 ML IV.SOLN IVC ONE (07:36)
[2021-08-18] MEDS ORDERED: *HR* Vasopressin 20 UNIT/ML VIAL ONE (07:36)
[2021-08-18] MEDS ORDERED: Acetaminophen IV 1,000 MG/100 ML BAG IVPB ONE (07:39)
[2021-08-18] MEDS ORDERED: Ondansetron 4 MG/2 ML VIAL ONE (09:02)
[2021-08-18] MEDS ORDERED: *HR* Succinylcholine 200 MG/10 ML VIAL IVP ONE (09:02)
[2021-08-18] MEDS ORDERED: *HR* Rocuronium Bromide 50 MG/5 ML VIAL ONE (09:02)
[2021-08-18] MEDS ORDERED: Lidocaine -MPF 2% 5 ML VIAL ONE (09:02)
[2021-08-18] MEDS ORDERED: *HR* Labetalol 20 MG/4 ML SYRINGE IVP ONE (09:22)
[2021-08-18] MEDS ORDERED: *HR* HYDROMORPHONE 2 MG/ML VIAL ONE (09:28)
[2021-08-18] MEDS ORDERED: Sugammadex Sodium 200 MG/2 ML VIAL IV ONE (10:03)
[2021-08-18] MEDS ORDERED: Ondansetron 4 MG/2 ML VIAL IVP ONE (11:02)
[2021-08-18] MEDS ORDERED: Scopolamine Patch 1.5 MG PATCH.TD72 TD ONE (11:03)
[2021-08-18] MEDS ORDERED: *HR* Belladonna Alkaloids/Opium 30 MG RECTAL SUPPOSITORY RC PRN (12:40)
[2021-08-18] MEDS ORDERED: *HR* OxyCODONE Immed Rel 5 MG TABLET PO PRN (12:40)
[2021-08-18] MEDS ORDERED: Naloxone 0.4 MG/ML INJ IVP PRN (12:40)
[2021-08-18] MEDS ORDERED: D5% in Water 1,000 ML IVC PRN (12:40)
[2021-08-18] MEDS ORDERED: *HR* HYDROcodone/Acet 5/325 mg TABLET PO PRN (12:40)
[2021-08-18] MEDS ORDERED: Dextrose 4 GM Chewable Tablets PO PRN ×2 (12:40)
[2021-08-18] MEDS ORDERED: *HR* Dextrose 50 % in Water (Syg) 50 ML SYRINGE IVP PRN (12:40)
[2021-08-18] MEDS: Insulin LISPRO 300 UNITS/3 ML VIAL SUBQ SCH ×2 (13:10→17:28)
[2021-08-18] MEDS: CeFAZolin 2 GM/100 ML BAG IVPB SCH ×2 (16:31→23:54)
[2021-08-18] MEDS: 0.9 % Sodium Chloride 1,000 ML IVC SCH (16:32)
[2021-08-18] MEDS: Acetaminophen IV 1,000 MG/100 ML BAG IVPB SCH ×2 (16:32→23:54)
[2021-08-19 04:44] LABS: Basophils % 0.1 %; Hematocrit 32.6 % (37.5-50.1); Hemoglobin 10.1 g/dL (12.9-16.9); Immature Granulocytes % 0.3 % (0-4); Lymphocytes # 0.7 K/mcL (0.6-4.6); Lymphocytes % 5.3 %; Mean Corpuscular Volume 93.7 fL (83.0-100.0); Monocytes # 1.1 K/mcL (0.0-1.3); Monocytes % 8.6 %; Neutrophils # 10.6 K/mcL (1.6-8.9); Platelet Count 232 K/mcL (140-400); Red Blood Count 3.48 M/mcL (4.19-5.50); Red Cell Distribution Width 12.6 % (11.5-14.5); Segmented Neutrophils % 85.7 %; White Blood Count 12.4 K/mcL (4.3-11.1)
[2021-08-19 05:08] LABS: Calcium 8.1 mg/dL (8.6-10.3); Potassium 4.8 mEq/L (3.5-5.1)
[2021-08-19] MEDS: 0.9 % Sodium Chloride 1,000 ML IVC SCH (05:54)
[2021-08-19] MEDS: Insulin LISPRO 300 UNITS/3 ML VIAL SUBQ SCH ×3 (07:42→16:51)
[2021-08-19] MEDS ORDERED: lisinopriL 5 MG TABLET PO SCH (09:00)
[2021-08-19] MEDS: Cholecalciferol (D-3) 1,000 UNIT (25MCG) TABLET PO SCH (09:01)
[2021-08-19] MEDS: PARoxetine 20 MG TABLET PO SCH (11:43)
[2021-08-19] MEDS: Ondansetron 4 MG/2 ML VIAL IVP PRN (13:33)
[2021-08-19 20:01] LABS: Bilirubin,Urine Negative (Negative); Blood,Urine Moderate (Negative); Clarity,Urine Clear (Clear); Color,Urine Light-Yellow (Yellow); Glucose,Urine (UA) 70 mg/dL (Normal); Ketones,Urine Negative (Negative); Leukocyte Esterase,Urine Negative (Negative); Mucus,Urine Few per lpf (None-Few); Nitrite,Urine Negative (Negative); Protein,Urine 70 mg/dL (Neg-Trace); RBC,Urine 15-30 per hpf (0-3); Specific Gravity,Urine 1.027 (1.010-1.025); Squamous Epithelial Cell,Urine Few per hpf (None-Few); Urobilinogen,Urine Normal (Normal); WBC,Urine 0-3 per hpf (0-3)
[2021-08-20] MEDS: Ondansetron 4 MG/2 ML VIAL IVP PRN ×2 (00:07→11:22)
[2021-08-20] MEDS ORDERED: Melatonin 3 MG TABLET PO ONE (00:58)
[2021-08-20] MEDS ORDERED: Ondansetron 4 MG/2 ML VIAL IVP ONE (01:30)
[2021-08-20 04:01] LABS: Basophils % 0.1 %; Eosinophils % 0.1 %; Hematocrit 33.8 % (37.5-50.1); Hemoglobin 11.1 g/dL (12.9-16.9); Immature Granulocytes % 0.3 % (0-4); Lymphocytes # 0.6 K/mcL (0.6-4.6); Lymphocytes % 3.8 %; Mean Corpuscular HGB Conc 32.8 g/dL (31.6-35.5); Mean Corpuscular Hemoglobin 29.3 pg (28.0-33.3); Mean Corpuscular Volume 89.2 fL (83.0-100.0); Monocytes # 1.3 K/mcL (0.0-1.3); Monocytes % 8.7 %; Neutrophils # 12.8 K/mcL (1.6-8.9); Platelet Count 229 K/mcL (140-400); Red Blood Count 3.79 M/mcL (4.19-5.50); Red Cell Distribution Width 12.8 % (11.5-14.5); White Blood Count 14.7 K/mcL (4.3-11.1)
[2021-08-20] MEDS ORDERED: 0.9 % Sodium Chloride 1,000 ML IVC SCH (04:30)
[2021-08-20 04:33] LABS: Calcium 8.9 mg/dL (8.6-10.3); Potassium 4.2 mEq/L (3.5-5.1)
[2021-08-20 06:38] LABS: Chol/HDL Ratio 2.5 (0-4.9)
[2021-08-20] MEDS: PARoxetine 20 MG TABLET PO SCH (08:00)
[2021-08-20] MEDS: Cholecalciferol (D-3) 1,000 UNIT (25MCG) TABLET PO SCH (08:00)
[2021-08-20] MEDS: Insulin LISPRO 300 UNITS/3 ML VIAL SUBQ SCH ×2 (08:17→11:20)
[2021-08-20 11:19] LABS: Estimated Average Glucose 137 mg/dl; Hemoglobin A1C 6.4 %
[2021-08-20 11:42] VITALS: BP 136/70; PULSE 76; TEMP 97.7; O2SAT 97
[2021-08-20 14:13] LABS: VBG HCO3 23 mEq/L (21-27); VBG PCO2 32 mmHg (41-51); VBG PH 7.46 pH Units (7.32-7.42); VBG PO2 207 mmHg (25-50)
[2021-08-20] MEDS ORDERED: Insulin LISPRO 300 UNITS/3 ML VIAL SUBQ SCH (21:00)
[2021-08-21] MEDS ORDERED: Aspirin Enteric Coated 81 MG Tablet PO SCH (09:00)
[2021-08-22 10:05] LABS: Sodium, Urine 65.6 mEq/L
== END 2021-08-20 15:37 | disposition home or self-care (01) | DRG 660 ==
LOC: SAMDAY 06:37 → SUATTDRO 12:37 → 3ANU 12:37
PROVIDERS: ADMIT Physician Assistant; ATTEND Urology

== ENCOUNTER 2021-08-22 18:23 | Inpatient (IN) ==
[2021-08-22 19:29] LABS: White Blood Count 9.4 K/mcL (4.3-11.1)
[2021-08-22 19:30] LABS: Basophils % 0.1 %; Eosinophils # 0.2 K/mcL (0.0-0.6); Hematocrit 34.1 % (37.5-50.1); Hemoglobin 11.2 g/dL (12.9-16.9); Immature Granulocytes % 0.2 % (0-4); Lymphocytes # 0.6 K/mcL (0.6-4.6); Lymphocytes % 6.5 %; Mean Corpuscular HGB Conc 32.8 g/dL (31.6-35.5); Mean Corpuscular Hemoglobin 29.9 pg (28.0-33.3); Mean Corpuscular Volume 90.9 fL (83.0-100.0); Mean Platelet Volume 10.4 fL (9.4-12.4); Monocytes # 1.4 K/mcL (0.0-1.3); Neutrophils # 7.2 K/mcL (1.6-8.9); Platelet Count 295 K/mcL (140-400); Red Blood Count 3.75 M/mcL (4.19-5.50); Red Cell Distribution Width 13.2 % (11.5-14.5); Segmented Neutrophils % 76.2 %
[2021-08-22 19:49] LABS: Albumin 3.4 g/dL (3.5-5.7); Albumin/Globulin Ratio 1.1 (1.1-2.2); Bilirubin,Direct 0.1 mg/dL (0.0-0.2); Bilirubin,Indirect 0.6 mg/dL (0.0-1.0); Bilirubin,Total 0.7 mg/dL (0.3-1.0); Calcium 9.7 mg/dL (8.6-10.3); Globulin 3.2 g/dL (2.4-3.5); Magnesium 2.1 mg/dL (1.6-2.6); Potassium 3.7 mEq/L (3.5-5.1); Total Protein 6.6 g/dL (6.4-8.9)
[2021-08-22 19:58] LABS: Platelet Estimate Normal (Normal)
[2021-08-22] MEDS ORDERED: Isovue-370 500 ML BOTTLE IVP ONE (20:17)
[2021-08-22] MEDS ORDERED: 0.9 % Sodium Chloride 1,000 ML IVC ONE (20:19)
[2021-08-22] MEDS ORDERED: Pantoprazole 40 MG VIAL IVP ONE (21:34)
[2021-08-22] MEDS ORDERED: Piperacillin/Tazobactam 3.375 GM in 0.9 % Sodium Chloride Mini Bag 100 ML IVPB ONE (22:01)
[2021-08-22] MEDS ORDERED: Vancomycin 1,500 MG/265 ML IV.SOLN IVPB ONE (22:01)
[2021-08-22] MEDS ORDERED: Prochlorperazine 10 MG/2 ML VIAL IVP ONE (22:04)
[2021-08-22] MEDS ORDERED: Ondansetron 4 MG/2 ML VIAL IVP PRN (22:11)
[2021-08-22] MEDS ORDERED: Naloxone 0.4 MG/ML INJ IVP PRN (22:11)
[2021-08-22] MEDS ORDERED: 0.9 % Sodium Chloride 1,000 ML IVC SCH (22:15)
[2021-08-22] MEDS ORDERED: *HR* LORazepam 2 MG/ML VIAL IVP ONE (23:18)
[2021-08-22 23:23] LABS: Bilirubin,Urine Negative (Negative); Blood,Urine Large (Negative); Clarity,Urine Turbid (Clear); Color,Urine Dark-Yellow (Yellow); Glucose,Urine (UA) Normal (Normal); Ketones,Urine Negative (Negative); Leukocyte Esterase,Urine Negative (Negative); Nitrite,Urine Positive (Negative); Protein,Urine >=600 mg/dL (Neg-Trace); Specific Gravity,Urine > 1.030 (1.010-1.025); Urobilinogen,Urine Normal (Normal)
[2021-08-22] MEDS ORDERED: Dextrose 4 GM Chewable Tablets PO PRN ×2 (23:35)
[2021-08-22] MEDS ORDERED: *HR* Dextrose 50 % in Water (Syg) 50 ML SYRINGE IVP PRN (23:35)
[2021-08-22] MEDS ORDERED: D5% in Water 1,000 ML IVC PRN (23:35)
[2021-08-22 23:37] LABS: Granular Casts,Urine Few per lpf (None Seen); RBC,Urine 50-100 per hpf (0-3)
[2021-08-22 23:38] LABS: Amorphous Sediment,Urine Few per hpf (None-Few); Uric Acid Crystals,Urine Present per hpf; WBC,Urine 0-3 per hpf (0-3)
[2021-08-23] MEDS: Insulin LISPRO 300 UNITS/3 ML VIAL SUBQ SCH ×3 (01:45→13:41)
[2021-08-23 05:35] LABS: Mean Corpuscular HGB Conc 32.5 g/dL (31.6-35.5); Mean Corpuscular Hemoglobin 29.5 pg (28.0-33.3); Mean Corpuscular Volume 90.9 fL (83.0-100.0); Mean Platelet Volume 10.2 fL (9.4-12.4); Platelet Count 227 K/mcL (140-400); Red Blood Count 3.08 M/mcL (4.19-5.50); Red Cell Distribution Width 13.2 % (11.5-14.5); White Blood Count 6.7 K/mcL (4.3-11.1)
[2021-08-23 05:37] LABS: Hemoglobin 9.1 g/dL (12.9-16.9)
[2021-08-23] MEDS ORDERED: Pantoprazole 40 MG VIAL IVP SCH (06:00)
[2021-08-23 06:39] LABS: Calcium 8.5 mg/dL (8.6-10.3); Potassium 3.8 mEq/L (3.5-5.1)
[2021-08-23] MEDS ORDERED: cefTRIAXone 1,000 MG in 0.9 % Sodium Chloride 10 ML IVP SCH (09:00)
[2021-08-23] MEDS ORDERED: 0.9 % Sodium Chloride 1,000 ML IVC SCH (12:00)
[2021-08-23] MEDS ORDERED: Ondansetron 4 MG/2 ML VIAL IVP PRN ×2 (15:14→18:10)
[2021-08-23] MEDS ORDERED: *HR* HYDROmorphone PF 0.5 MG/0.5 ML SYRINGE IVP PRN (15:14)
[2021-08-23] MEDS ORDERED: *HR* Propofol 200 MG/20 ML VIAL IVP ONE (15:52)
[2021-08-23] MEDS ORDERED: *HR* FentaNYL (PF) 100 MCG/2 ML VIAL ONE (15:52)
[2021-08-23] MEDS ORDERED: Lidocaine -MPF 2% 2 ML VIAL ONE (15:55)
[2021-08-23] MEDS ORDERED: Ondansetron 4 MG/2 ML VIAL ONE (15:55)
[2021-08-23] MEDS ORDERED: *HR* Rocuronium Bromide 50 MG/5 ML VIAL ONE (15:55)
[2021-08-23] MEDS ORDERED: *HR* Phenylephrine 10 MG/ML VIAL ONE (16:36)
[2021-08-23] MEDS ORDERED: Ketamine HCL *QUVA* 50mg (1mL) SYRINGE ONE (17:03)
[2021-08-23] MEDS ORDERED: *HR* Metoprolol 5 MG/5 ML VIAL IVP SCH (18:00)
[2021-08-23] MEDS ORDERED: Naloxone 0.4 MG/ML INJ IVP PRN (18:10)
[2021-08-23] MEDS ORDERED: Dextrose 4 GM Chewable Tablets PO PRN ×2 (18:10)
[2021-08-23] MEDS ORDERED: *HR* Dextrose 50 % in Water (Syg) 50 ML SYRINGE IVP PRN (18:10)
[2021-08-23] MEDS ORDERED: D5% in Water 1,000 ML IVC PRN (18:10)
[2021-08-23] MEDS: Acetaminophen IV 1,000 MG/100 ML BAG IVPB SCH (19:49)
[2021-08-23] MEDS: 0.9 % Sodium Chloride 1,000 ML IVC SCH (21:11)
[2021-08-24] MEDS: Insulin LISPRO 300 UNITS/3 ML VIAL SUBQ SCH ×4 (01:17→17:10)
[2021-08-24] MEDS: Acetaminophen IV 1,000 MG/100 ML BAG IVPB SCH ×4 (01:17→17:10)
[2021-08-24] MEDS: 0.9 % Sodium Chloride 1,000 ML IVC SCH ×2 (05:48→15:02)
[2021-08-24] MEDS: Pantoprazole 40 MG VIAL IVP SCH ×2 (06:38→17:09)
[2021-08-24] MEDS ORDERED: cefTRIAXone 1,000 MG in 0.9 % Sodium Chloride 10 ML IVP SCH (09:00)
[2021-08-24 12:07] LABS: Albumin 2.6 g/dL (3.5-5.7); Bilirubin,Total 0.4 mg/dL (0.3-1.0); Calcium 7.8 mg/dL (8.6-10.3); Globulin 2.5 g/dL (2.4-3.5); Hematocrit 26.6 % (37.5-50.1); Hemoglobin 8.7 g/dL (12.9-16.9); Magnesium 2.1 mg/dL (1.6-2.6); Mean Corpuscular HGB Conc 32.7 g/dL (31.6-35.5); Mean Corpuscular Hemoglobin 29.6 pg (28.0-33.3); Mean Corpuscular Volume 90.5 fL (83.0-100.0); Mean Platelet Volume 10.3 fL (9.4-12.4); Phosphorous 3.6 mg/dL (2.7-4.5); Platelet Count 210 K/mcL (140-400); Potassium 4.7 mEq/L (3.5-5.1); Red Blood Count 2.94 M/mcL (4.19-5.50); Total Protein 5.1 g/dL (6.4-8.9); White Blood Count 8.8 K/mcL (4.3-11.1)
[2021-08-24 12:09] LABS: Basophils % 0.3 %; Eosinophils # 0.1 K/mcL (0.0-0.6); Eosinophils % 0.9 %; Lymphocytes # 0.9 K/mcL (0.6-4.6); Lymphocytes % 10.6 %; Monocytes # 1.3 K/mcL (0.0-1.3); Monocytes % 14.2 %; Neutrophils # 6.4 K/mcL (1.6-8.9); Nucleated Red Blood Cells 0.2 /100 WBC (0)
[2021-08-25] MEDS: 0.9 % Sodium Chloride 1,000 ML IVC SCH ×2 (01:03→10:29)
[2021-08-25] MEDS: Acetaminophen IV 1,000 MG/100 ML BAG IVPB SCH ×3 (01:04→11:33)
[2021-08-25] MEDS: Insulin LISPRO 300 UNITS/3 ML VIAL SUBQ SCH ×2 (01:04→05:38)
[2021-08-25] MEDS: Pantoprazole 40 MG VIAL IVP SCH (05:13)
[2021-08-25 08:06] LABS: Hemoglobin 9.1 g/dL (12.9-16.9); Mean Corpuscular HGB Conc 31.4 g/dL (31.6-35.5); Mean Corpuscular Hemoglobin 29.6 pg (28.0-33.3); Mean Corpuscular Volume 94.5 fL (83.0-100.0); Mean Platelet Volume 10.3 fL (9.4-12.4); Platelet Count 238 K/mcL (140-400); Red Blood Count 3.07 M/mcL (4.19-5.50); Red Cell Distribution Width 13.2 % (11.5-14.5); White Blood Count 9.5 K/mcL (4.3-11.1)
[2021-08-25 08:07] LABS: Albumin 2.7 g/dL (3.5-5.7); Albumin/Globulin Ratio 1.1 (1.1-2.2); Bilirubin,Total 0.4 mg/dL (0.3-1.0); Calcium 7.8 mg/dL (8.6-10.3); Globulin 2.5 g/dL (2.4-3.5); Magnesium 2.1 mg/dL (1.6-2.6); Phosphorous 2.4 mg/dL (2.7-4.5); Potassium 4.3 mEq/L (3.5-5.1); Total Protein 5.2 g/dL (6.4-8.9)
[2021-08-25] MEDS: Melatonin 3 MG TABLET PO PRN (23:42)
[2021-08-26 05:57] LABS: Basophils % 0.3 %; Eosinophils # 0.3 K/mcL (0.0-0.6); Eosinophils % 3.5 %; Hematocrit 27.8 % (37.5-50.1); Hemoglobin 8.7 g/dL (12.9-16.9); Lymphocytes # 1.1 K/mcL (0.6-4.6); Lymphocytes % 13.4 %; Mean Corpuscular HGB Conc 31.3 g/dL (31.6-35.5); Mean Corpuscular Hemoglobin 28.9 pg (28.0-33.3); Mean Corpuscular Volume 92.4 fL (83.0-100.0); Mean Platelet Volume 9.9 fL (9.4-12.4); Monocytes # 0.9 K/mcL (0.0-1.3); Neutrophils # 5.6 K/mcL (1.6-8.9); Nucleated Red Blood Cells 0.3 /100 WBC (0); Platelet Count 249 K/mcL (140-400); Red Blood Count 3.01 M/mcL (4.19-5.50); Segmented Neutrophils % 69.8 %; White Blood Count 7.9 K/mcL (4.3-11.1)
[2021-08-26 06:11] LABS: Albumin 2.7 g/dL (3.5-5.7); Albumin/Globulin Ratio 1.2 (1.1-2.2); Bilirubin,Total 0.4 mg/dL (0.3-1.0); Calcium 7.5 mg/dL (8.6-10.3); Globulin 2.2 g/dL (2.4-3.5); Potassium 3.9 mEq/L (3.5-5.1); Total Protein 4.9 g/dL (6.4-8.9)
[2021-08-26] MEDS: Aspirin Enteric Coated 81 MG Tablet PO SCH (10:02)
[2021-08-26] MEDS: Cholecalciferol (D-3) 1,000 UNIT (25MCG) TABLET PO SCH (10:02)
[2021-08-26] MEDS: PARoxetine 20 MG TABLET PO SCH (10:03)
[2021-08-26] MEDS: 0.9 % Sodium Chloride 1,000 ML IVC SCH ×3 (10:07→17:25)
[2021-08-26] MEDS ORDERED: Acetaminophen 325 MG TABLET PO PRN (14:27)
[2021-08-26] MEDS ORDERED: *HR* Enoxaparin 40 MG/0.4 ML SYRINGE SQ ONE (16:54)
[2021-08-26] MEDS: Melatonin 3 MG TABLET PO PRN (20:08)
[2021-08-27] MEDS ORDERED: *HR* Enoxaparin 40 MG/0.4 ML SYRINGE SQ SCH (06:00)
[2021-08-27 06:14] LABS: Basophils % 0.2 %; Eosinophils # 0.3 K/mcL (0.0-0.6); Eosinophils % 2.6 %; Hematocrit 28.2 % (37.5-50.1); Hemoglobin 8.9 g/dL (12.9-16.9); Immature Granulocytes % 2.3 % (0-4); Lymphocytes # 1.2 K/mcL (0.6-4.6); Lymphocytes % 12.5 %; Mean Corpuscular HGB Conc 31.6 g/dL (31.6-35.5); Mean Corpuscular Volume 91.9 fL (83.0-100.0); Mean Platelet Volume 9.9 fL (9.4-12.4); Monocytes # 0.9 K/mcL (0.0-1.3); Monocytes % 9.3 %; Neutrophils # 7.2 K/mcL (1.6-8.9); Platelet Count 243 K/mcL (140-400); Red Blood Count 3.07 M/mcL (4.19-5.50); Segmented Neutrophils % 73.1 %; White Blood Count 9.9 K/mcL (4.3-11.1)
[2021-08-27] MEDS: 0.9 % Sodium Chloride 1,000 ML IVC SCH (06:32)
[2021-08-27 06:57] LABS: Albumin 2.6 g/dL (3.5-5.7); Albumin/Globulin Ratio 1.2 (1.1-2.2); Bilirubin,Total 0.4 mg/dL (0.3-1.0); Calcium 7.1 mg/dL (8.6-10.3); Globulin 2.2 g/dL (2.4-3.5); Potassium 3.5 mEq/L (3.5-5.1); Total Protein 4.8 g/dL (6.4-8.9)
[2021-08-27 08:29] VITALS: BP 138/80; PULSE 86; TEMP 98.2; O2SAT 95
[2021-08-27] MEDS: Cholecalciferol (D-3) 1,000 UNIT (25MCG) TABLET PO SCH (09:01)
[2021-08-27] MEDS: Aspirin Enteric Coated 81 MG Tablet PO SCH (09:02)
[2021-08-27] MEDS: PARoxetine 20 MG TABLET PO SCH (09:02)
== END 2021-08-27 11:40 | disposition home or self-care (01) | DRG 336 ==
LOC: EMEROOARM 18:23 → 3ANU 18:23 → SUATTDRO 08-23 18:32
PROVIDERS: ADMIT Student in an Organized Health Care Education/Training Program; ATTEND Hospitalist